=== PATIENT | female | born 1940 | race Caucasian/White ===

== ENCOUNTER → 2016-05-20 | Outpatient (CLI) | payer MEDICARE, BC ==
--- NOTE | 2016-05-23 08:48 | RSPPFT ---
DATE OF PROCEDURE: 05/20/16 COMMENTS: VOLUMES DYNAMIC: FVC and FEV1 mildly reduced. STATIC: VTG moderately increased; RV severely increased; TLC normal. FLOWS: FEV1% normal; FEF 25-75 severely reduced. DIFFUSION: Normal. FLOW VOLUME LOOP: Pattern of variable intrathoracic airways obstruction. IMPRESSION: Mild reduction in dynamic lung volumes but significant hyperinflation all consistent with obstructive lung disease. Airways resistance is normal. Diffusion capacity is normal. There is also minimal change post-bronchodilator.
== END ==
LOC: HRSP 08:36
PROVIDERS: ATTEND Internal Medicine
DX: J44.9 Chronic obstructive pulmonary disease, unspecified (principal); R06.00 Dyspnea, unspecified
CPT/HCPCS: 94060; 94620; 94726; 94729